=== PATIENT | female | born 1955 | race African-American/Black ===

== ENCOUNTER 2016-10-26 10:03 | Emergency (ER) | payer OTHER ==
[2016-10-26] MEDS ORDERED: IV NORMAL SALINE 1,000ML 1,000 ML IV SCH (10:27)
[2016-10-26] MEDS ORDERED: ONDANSETRON PF 4 MG/2 ML VIAL. IV ONE (10:30)
--- NOTE | 2016-10-26 10:41 | EKG ---
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
[2016-10-26 10:46] LABS: BASO % 0 % (0-3); EOS # 0.1 x10^3/uL (0.0-0.7); EOS % 1 % (0-3); HEMATOCRIT 41.1 % (36.0-47.0); HEMOGLOBIN 13.5 g/dL (12.0-15.5); LYMPH # 2.3 x10^3/uL (1.0-4.8); LYMPH % 35 % (24-48); MEAN CORPUSCULAR HEMOGLOBIN 29 pg (25-35); MEAN CORPUSCULAR HGB CONC 33 g/dL (31-37); MEAN CORPUSCULAR VOLUME 89 fL (79-100); MONO # 0.5 x10^3/uL (0.0-1.1); MONO % 8 % (0-9); NEUT # 3.6 x10^3uL (1.8-7.7); NEUT % 56 % (31-73); PLATELET COUNT 269 x10^3/uL (140-400); RED BLOOD COUNT 4.62 x10^6/uL (3.50-5.40); RED CELL DISTRIBUTION WIDTH 14.6 % (11.5-14.5); WHITE BLOOD COUNT 6.6 x10^3/uL (4.0-11.0)
[2016-10-26 10:59] LABS: CALCIUM 9.8 mg/dL (8.5-10.1); CREATININE 0.9 mg/dL (0.6-1.0); GFR 77.3; POTASSIUM 3.7 mmol/L (3.5-5.1)
--- NOTE | 2016-10-26 10:59 | RAD ---
CT head without contrast History: Dizziness, headache. Comparison: None. Procedure: Axial images are obtained of the head from the skull base through the vertex without IV contrast. Findings: The ventricles and sulci are normal for the patient's age. No mass-effect, intracranial mass, midline shift, hemorrhage or obvious acute infarction is identified. Basilar cisterns are patent. Bone windows demonstrate no significant calvarial abnormality. The visualized paranasal sinuses appear clear. Impression: 1. No acute intracranial process. PQRS Compliance Statement: One or more of the following individualized dose reduction techniques were utilized for this examination: 1. Automated exposure control 2. Adjustment of the mA and/or kV according to patient size 3. Use of iterative reconstruction technique faint
[2016-10-26] MEDS ORDERED: MECLIZINE 25 MG TABLET PO ONE (11:10)
--- NOTE | 2016-10-26 11:10 | PHYS DOC ---
Past History Past Medical History: Cancer, Fibromyalgia, Hypertension, Other Past Surgical History: Cancer Surgery, Other Alcohol Use: None Drug Use: None Adult General Chief Complaint Chief Complaint: HEADACHE HPI HPI Patient is a 61 year old female who presents with complaint of headache, dizziness, and generalized weakness. Patient states that her symptoms started yesterday morning. Patient states that she is having vertigo type symptoms as the room is "spinning around on me." Patient states that the symptoms worsen when she tries to stand up or when she turns her head. Patient states that her headache is along the back of her head and radiates down into her neck and bilateral shoulders. Patient denies any fevers or vomiting associated with her symptoms. Patient states that she has history of fibromyalgia, breast cancer, and a history of "mini stroke." Patient states that she currently follows with Dr. Lerner at the cancer Center at [facility]. She states she has an appointment tomorrow for CT imaging of her abdomen and pelvis. Patient rates her pain currently as 5 out of 10. Patient denies any focal weakness or loss of vision associated with her symptoms. Review of Systems Review of Systems Constitutional: Generalized fatigue, denies fever or chills [] Eyes: Denies change in visual acuity, redness, or eye pain [] HENT: Denies nasal congestion or sore throat [] Respiratory: Denies cough or shortness of breath [] Cardiovascular: Denies chest pain or edema [] GI: Denies abdominal pain, nausea, vomiting, bloody stools or diarrhea [] : Denies dysuria or hematuria [] Musculoskeletal: Denies back pain or joint pain [] Integument: Denies rash or skin lesions [] Neurologic: Headache, dizziness, denies focal weakness or sensory changes [] Current Medications Current Medications Current Medications Medications (Trade) Dose Ordered Sig/Mary Start Time Stop Time Status Last Admin Dose Admin Diazepam (Valium) 5 mg 1X ONCE 10/26/16 11:10 10/26/16 11:11 Meclizine HCl (Antivert) 25 mg 1X ONCE 10/26/16 11:10 10/26/16 11:11 Ondansetron HCl (Zofran) 4 mg 1X ONCE 10/26/16 10:30 10/26/16 10:45 DC 10/26/16 10:40 4 MG Sodium Chloride 1,000 ml @ 1,000 mls/hr Q1H 10/26/16 10:27 10/26/16 11:26 Allergies Allergies Allergies Coded Allergies Type Severity Reaction Last Updated Verified Penicillins Allergy Intermediate 10/26/16 Yes Physical Exam Physical Exam Constitutional: Alert, afebrile, appears in mild to moderate discomfort. [] HENT: Normocephalic, atraumatic, bilateral external ears normal, oropharynx moist, no oral exudates, nose normal. [] Eyes: PERRLA, EOMI, conjunctiva normal, no discharge. [] Neck: Normal range of motion, tenderness to palpation along bilateral paraspinous muscles tracking along the distribution of trapezius muscles into the shoulders bilaterally, supple, no stridor. [] Cardiovascular:Heart rate regular rhythm, no murmur [] Lungs & Thorax: Bilateral breath sounds clear to auscultation [] Abdomen: Bowel sounds normal, soft, no tenderness, no masses, no pulsatile masses. [] Skin: Warm, dry, no erythema, no rash. [] Back: No tenderness, no CVA tenderness. [] Extremities: No tenderness, no cyanosis, no clubbing, ROM intact, no edema. [] Neurologic: Alert and oriented X 3, normal motor function, normal sensory function, no focal deficits noted. [] Current Patient Data Vital Signs Vital Signs Date Time Temp Pulse Resp B/P (MAP) Pulse Ox O2 Delivery O2 Flow Rate FiO2 10/26/16 10:15 98.0 58 18 98 Room Air Lab Results Laboratory Tests Test 10/26/16 10:35 10/26/16 11:50 White Blood Count 6.6 x10^3/uL Red Blood Count 4.62 x10^6/uL Hemoglobin 13.5 g/dL Hematocrit 41.1 % Mean Corpuscular Volume 89 fL Mean Corpuscular Hemoglobin 29 pg Mean Corpuscular Hemoglobin Concent 33 g/dL Red Cell Distribution Width 14.6 % Platelet Count 269 x10^3/uL Neutrophils (%) (Auto) 56 % Lymphocytes (%) (Auto) 35 % Monocytes (%) (Auto) 8 % Eosinophils (%) (Auto) 1 % Basophils (%) (Auto) 0 % Neutrophils # (Auto) 3.6 x10^3uL Lymphocytes # (Auto) 2.3 x10^3/uL Monocytes # (Auto) 0.5 x10^3/uL Eosinophils # (Auto) 0.1 x10^3/uL Basophils # (Auto) 0.0 x10^3/uL Sodium Level 141 mmol/L Potassium Level 3.7 mmol/L Chloride Level 105 mmol/L Carbon Dioxide Level 30 mmol/L Anion Gap 6 Blood Urea Nitrogen 16 mg/dL Creatinine 0.9 mg/dL Estimated GFR (Cockcroft-Gault) 77.3 Glucose Level 90 mg/dL Calcium Level 9.8 mg/dL Magnesium Level 2.0 mg/dL Urine Collection Type Unknown Urine Color Yellow Urine Clarity Clear Urine pH 5.0 Urine Specific Jud <=1.005 Urine Protein Neg Urine Glucose (UA) Neg mg/dL Urine Ketones (Stick) Neg mg/dL Urine Blood Neg Urine Nitrite Neg Urine Bilirubin Neg Urine Urobilinogen Dipstick 0.2 mg/dL Urine Leukocyte Esterase Neg Urine RBC 0 /HPF Urine WBC 0 /HPF Urine Squamous Epithelial Cells Few /LPF Urine Bacteria 0 /HPF Current Medications Medications (Trade) Dose Ordered Sig/Mary Route PRN Reason Start Time Stop Time Status Last Admin Dose Admin Ondansetron HCl (Zofran) 4 mg 1X ONCE IV 10/26/16 10:30 10/26/16 10:45 DC 10/26/16 10:40 Meclizine HCl (Antivert) 25 mg 1X ONCE PO 10/26/16 11:10 10/26/16 11:11 DC 10/26/16 11:27 Sodium Chloride 1,000 ml @ 1,000 mls/hr Q1H IV 10/26/16 10:27 10/26/16 11:26 DC 10/26/16 11:27 Diazepam (Valium) 5 mg 1X ONCE IV 10/26/16 11:10 10/26/16 11:11 DC 10/26/16 11:27 Prochlorperazine Edisylate (Compazine) 10 mg 1X ONCE IV 10/26/16 11:15 10/26/16 11:36 DC 10/26/16 11:35 Diphenhydramine HCl (Benadryl) 25 mg 1X ONCE IVP 10/26/16 11:15 10/26/16 11:36 DC 10/26/16 11:35 Ketorolac Tromethamine (Toradol) 30 mg 1X ONCE IV 10/26/16 11:15 10/26/16 11:36 DC 10/26/16 11:35 EKG EKG Interpreted by me: Heart rate 52, sinus rhythm, normal intervals, normal axis, no acute ST/T-wave abnormalities present [] Radiology/Procedures Radiology/Procedures [address] [address] IMAGING REPORT Signed PATIENT: DAVID RIVERO ACCOUNT: [id number] : 1955 LOCATION: ER AGE: 61 SEX: F EXAM STATUS: REG ER ORD. PHYSICIAN: MOISÉS NARANJO MD REASON: dizziness since yesterday, history of "brain lesions." PROCEDURE: CT HEAD WO CONTRAST CT head without contrast History: Dizziness, headache. Comparison: None. Procedure: Axial images are obtained of the head from the skull base through the vertex without IV contrast. Findings: The ventricles and sulci are normal for the patient's age. No mass-effect, intracranial mass, midline shift, hemorrhage or obvious acute infarction is identified. Basilar cisterns are patent. Bone windows demonstrate no significant calvarial abnormality. The visualized paranasal sinuses appear clear. Impression: 1. No acute intracranial process. PQRS Compliance Statement: One or more of the following individualized dose reduction techniques were utilized for this examination: 1. Automated exposure control 2. Adjustment of the mA and/or kV according to patient size 3. Use of iterative reconstruction technique faint DICTATED AND SIGNED BY: MAXIME RUIZ MD DATE: 10/26/16 1054 CC: MOISÉS NARANJO MD; BOZENA TEJADA DO ~ [] Course & Med Decision Making Course & Med Decision Making Pertinent Labs and Imaging studies reviewed. (See chart for details) Patient was initially treated with Valium and meclizine as well as IV fluids in the emergency department. On reevaluation, patient states that her dizziness had improved but she was still having headache. Patient was treated with Compazine, Benadryl, and IV Toradol. After treatment, patient states her headache has improved at this time and she feels much better. Patient's CT and blood work are unremarkable and patient's UA does not show any signs of infection. Patient's symptoms at this time appear consistent with vertigo and headache with no evidence of acute life-threatening cause. The patient will be continued on Valium and meclizine for outpatient treatment. The patient is scheduled to see her physician tomorrow and I told her to keep this appointment as scheduled. Advised return to emergency department for any worsening symptoms. Patient voiced understanding and in agreement with treatment plan. Dragon Disclaimer Dragon Disclaimer This chart was dictated in whole or in part using Voice Recognition software in a busy, high-work load, and often noisy Emergency Department environment. It may contain unintended and wholly unrecognized errors or omissions. Departure Departure: Impression: Primary Impression: Headache Additional Impression: Vertigo Disposition: HOME, SELF-CARE Condition: IMPROVED Referrals: BOZENA TEJADA DO (PCP) Patient Instructions: General Headache Without Cause, Vertigo Additional Instructions: Follow-up with your doctor tomorrow as scheduled for reevaluation. Return to the emergency department for any worsening symptoms. Scripts Meclizine Hcl (MECLIZINE HCL) 25 Mg Tablet 1 TAB PO PRN TID Y for DIZZINESS, #30 TAB Prov: MOISÉS NARANJO MD 10/26/16 Diazepam (VALIUM) 5 Mg Tablet 5 MG PO TID Y for MUSCLE PAIN, #20 TAB Prov: MOISÉS NARANJO MD 10/26/16 Problem Qualifiers Primary Impression: Headache Headache type: unspecified Headache chronicity pattern: episodic headache Intractability: not intractable Qualified Codes: R51 - Headache MOISÉS NARANJO MD Oct 26, 2016 11:10
[2016-10-26] MEDS ORDERED: diphenhydrAMINE 50 MG/ML VIAL IVP ONE (11:15)
[2016-10-26] MEDS ORDERED: KETOROLAC 30 MG/ML VIAL. IV ONE (11:15)
[2016-10-26] MEDS ORDERED: PROCHLORPERAZINE 10 MG/2 ML VIAL. IV ONE (11:15)
[2016-10-26 12:13] LABS: BACTERIA,URINE 0 /HPF (0-FEW); BILIRUBIN,URINE NEG (NEG); CLARITY,URINE CLEAR; COLOR,URINE YELLOW; GLUCOSE,URINE NEG (NEG); NITRITE,URINE NEG (NEG); RBC,URINE 0 /HPF (0-2); SQUAMOUS EPITHELIAL CELL,UR FEW /LPF; UROBILINOGEN,URINE 0.2 mg/dL (0.2 mg/dL); WBC,URINE 0 /HPF (0-4)
[2016-10-26] MEDS ORDERED: DIAZ5TAB PO (12:20)
[2016-10-26] MEDS ORDERED: MECL25TA3 PO (12:20)
[2016-10-26 12:33] VITALS: BP 128/78
== END 2016-10-26 12:34 | disposition home or self-care (01) ==
LOC: ER 10:03
DX: R51 Headache (principal); R42 Dizziness and giddiness; R53.1 Weakness; I10 Essential (primary) hypertension; M79.7 Fibromyalgia; Z88.0 Allergy status to penicillin
CPT/HCPCS: 36415; 70450; 80048; 81001; 83735; 85027; 93005; 96361; 96374; 96375; 99285; J0780; J1200; J1885; J2405; J8597; J7030